=== PATIENT | female | born 1930 | race Caucasian/White ===

== ENCOUNTER → 2016-06-06 | Outpatient (CLI) | payer OTHER ==
[~2016-06-06] MED LIST: AMLO10CA PO; ASCAUNK PO; ASPEC81 PO; CHOLTAB3 PO; CLTP PO; FIBER PO; GLCS500 PO; HYDC25 PO; OMEG10007 PO; STLS PO; THERA-TEARS; THIA100T11 PO; VITA400C15 PO; VITATAB19 PO
--- NOTE | 2016-06-06 15:46 | MAMMOGRAPHY REPORT ---
UNILATERAL RIGHT DIGITAL DIAGNOSTIC MAMMOGRAM TOMOSYNTHESIS AND TARGETED RIGHT ULTRASOUND: 06/06/2016 CLINICAL HISTORY: 85-year-old woman called back from screening mammography for a newly visualized 4. 7 mm mass and associated microcalcifications in the lower outer middle one third of the right breast . TECHNIQUE: Spot compression CC and MLO 2-D digital and tomosynthesis images; spot magnification CC a nd ML views of the right breast were obtained. COMPARISON: Comparison is made to exams dated: 05/04/2016 mammogram, 01/12/2015 mammogram, 11/19/2012 mammogram, 11/19/2011 mammogram, 11/20/2010 mammogram, and 08/08/2009 mammogram - [facility]. BREAST COMPOSITION: There are scattered areas of fibroglandular density in the right breast. FINDINGS: There are moderate vascular calcifications and numerous rodlike secretory calcifications and benign coarse calcifications within the right breast. However, there is a cluster of pleomorphi c microcalcifications adjacent to and within a rounded dense mass in the lower outer middle one thir d of the right breast. The mass appears partially circumscribed on the tomosynthesis images, but th e extent of the calcifications measure 11 x 11 x 7 mm in maximum dimension. Further evaluation with ultrasound was performed. Real-time high-resolution ultrasound was performed in the inferior right breast. In the 7:00 axis, approximately 27 m from the nipple, there is a rounded hypoechoic solid-appearing mass with internal punctate echogenic reflectors. The mass measures 4.0 x 3.2 x 5.6 mm. Inferior to the rounded mass there is a fusiform anechoic area of probable duct ectasia and just inferior to this and abutting t he rounded mass there is another angular hypoechoic lesion with internal reflectors likely represent ing the second area of pleomorphic microcalcification. This measures approximately 6 mm in dimensio n. These findings correlate well with the configuration of the mammographic abnormality and further evaluation with tissue sampling is recommended. Additional sonographic evaluation performed in the right axilla demonstrates 2 morphologically normal lymph nodes, without evidence of suspicious arturo opathy. IMPRESSION: ACR BI-RADS CATEGORY 4C: MODERATE SUSPICION FOR MALIGNANCY, TARGETED ULTRASOUND ACR BI- RADS CATEGORY 4C: MODERATE SUSPICION FOR MALIGNANCY 1. Ultrasound guided core biopsy with specimen radiography is recommended for a 4 mm rounded mass a nd adjacent angular hypoechoic mass, both of which have associated microcalcification identified in the 7:00 right breast on ultrasound, but thought to correlate with the mammographic findings in the lower outer middle one third of the breast. The mammographic findings including both the mass and e xtent of calcifications measures 11 x 11 x 7 mm in maximum dimension. These results and recommendations were discussed with the patient at the time of the exam. She tenta tively scheduled a biopsy prior to leaving our department. Approximately 10% of breast cancers are not detected with mammography. A negative mammographic repor t should not delay biopsy if a clinically suggestive mass is present. Pilar Narayanan M.D. ay/:06/06/2016 13:21:24 Rubber Press Operator: Priscila MANDEL(Aicha)(Emy), [facility] letter sent: Abnormal 4/5 BI-RADS Code: ACR BI-RADS Category 4C: Moderate Suspicion For Malignancy Ultrasound BI-RADS: ACR BI -RADS Category 4C: Moderate Suspicion For Malignancy
== END | disposition home or self-care (01) ==
LOC: C.MAMM 12:35
PROVIDERS: ATTEND Internal Medicine Endocrinology, Diabetes & Metabolism
DX: N63 Unspecified lump in breast (principal); R92.0 Mammographic microcalcification found on diagnostic imaging of breast

== ENCOUNTER → 2016-06-13 | Outpatient (CLI) | payer OTHER ==
--- NOTE | 2016-06-13 11:55 | Discharge Instructions ---
Discharge Instructions Procedure Procedure Date: Jun 13, 2016. Reason for visit: Right Mass. Discharge Discharge Date: Jun 13, 2016. Discharge Diagnosis: post right breast ultrasound guided core biopsy Instructions Activity Recommendations: Additional Limitations (see below) Return to School/Work: no limitations Recommended Home Diet: No Limitations Provider Instructions: ACTIVITY RECOMMENDATIONS: * No lifting, pushing, pulling or exercising the affected side for three days. RETURN TO SCHOOL/WORK: * You may return to work/school after the procedure, but do not perform any strenuous activities for 24 to 48 hours. MEDICATIONS: * Tylenol (two 325 mg) every four to six hours if needed for mild pain (if not allergic to Tylenol). DIET: * Resume previous diet. SPECIAL CARE INSTRUCTIONS: * Keep biopsy site dry for 24 hours. May shower after 24 hours, but do not soak (bathe) incision. * May remove Tegaderm (plastic patch) tomorrow AFTER showering. * Leave the steri-strips on for one week. Allow the steri-strips to fall off by themselves. If not off after one week, you may remove them. You may place a Bandaid crosswise over the strips, if desired. * Apply ice 10 minutes on and 10 minutes off as needed. * Wear a bra at bedtime to sleep more comfortably for 2-3 days. * Your referring physician should have the results after approximately 5 to 7 business days. * Call for unusual bleeding, fever, drainage, etc or if you have any questions call [phone] during normal business hours or after hours call Dr Narayanan, . FOLLOW UP VISIT: Follow-up with Referring Physician as scheduled. Allergies Coded Allergies: No Known Allergies (Unverified , 02/23/10) Jahaira Hernandez Recommendations: Call your doctor if: * Temperature above 101 degrees * Pain not relieved by pain medicine ordered * There is increased drainage or redness from any incision * You have any unanswered questions or concerns. Your Doctors Instructions noted above were prepared by provider Pilar Narayanan. Patient Signature Section: Patient Instructions Signature Page Katy Bang Patient (or Guardian) Signature/Date: I have read and understand the instructions given to me by my caregivers. Caregiver/RN/Doctor Signature/Date: The above-named patient and/or guardian has received patient instructions on this date. + Original Patient Signature Page (only) stays with chart. Please make copy for patient.
--- NOTE | 2016-06-13 13:58 | MAMMOGRAPHY REPORT ---
ULTRASOUND GUIDED BIOPSY RIGHT BREAST: 06/13/2016 CLINICAL HISTORY: 85-year-old woman presents for ultrasound-guided core biopsy of 2 adjacent versus contiguous hypoechoic solid masses with associated calcification in the 7:00 middle one third of the right breast. COMPARISON: Comparison is made to exams dated: 06/06/2016 ultrasound, 05/04/2016 mammogram, 11/19/2012 mammogram, 11/19/2011 mammogram, 08/09/2010 mammogram, and 08/08/2009 mammogram - [facility]. PATIENT CONSENT: The procedure, risks and benefits were discussed with the patient and informed writ ten consent was obtained. Specific risks to this procedure include: bleeding, infection, puncture of adjacent structure, nontarget biopsy, sampling error and medication reaction. PROCEDURE DESCRIPTION: A time out was performed and the right breast was agreed as the site of biops y. The skin was prepped and draped in the usual sterile fashion. The solid rounded and curvilinear s olid mass/masses with associated calcification in the 7:00 right breast was chosen as the target for biopsy. Subcutaneous and intraparenchymal 1% buffered lidocaine was administered as local anesthesi a. A skin incision was made. Through the incision, 5 samples were taken with a 12 gauge Code Rebel biop sy device. A specimen radiograph was performed after the first 4 samples were obtained, and numerou s microcalcifications are identified within one sample and a few microcalcifications are identified within a second sample, confirming that the hypoechoic masses on ultrasound do indeed contain the ma mmographically identified calcification. After confirmation of calcifications within the samples, a metallic marker was placed at the biopsy site. Hemostasis was achieved after manual compression. Th e patient tolerated the procedure well and there was no immediate complication. The samples were se nt to the pathology department an appropriately labeled container. Postprocedure right CC and ML tomosynthesis images were obtained. There is a new ribbon-shaped meta llic biopsy marker and no significant hematoma at the site of the mass with associated microcalcific ations. Pathology results are pending. IMPRESSION: ULTRASOUND GUIDED BIOPSY Status post ultrasound guided core needle biopsy of a contiguous mass versus 2 abutting masses with associated amorphic microcalcification in the 7:00 right breast, with biopsy marker placed at the si te. The patient will receive notification of the biopsy results from her referring physician. Pilar Narayanan M.D. ay/:06/13/2016 12:14:01 Clinical Nurse: Vicky SCHOFIELD (R)), [facility]
--- NOTE | 2016-06-13 13:58 | MAMMOGRAPHY REPORT ---
SPECIMEN: 06/13/2016 CLINICAL HISTORY: Specimen x-ray to insure microcalcifications are included in biopsy samples. Please refer to the report from right breast ultrasound guided core biopsy performed at the same [facility] e for full detail. IMPRESSION: SPECIMEN Please refer to the report from right breast ultrasound guided core biopsy performed at the same [facility] for full detail. Pilar Narayanan M.D. ay/:06/13/2016 11:56:10 Fibre Composite Technician: Vicky MANDEL(Aicha)(M), [facility]
--- NOTE | 2016-06-13 13:59 | MAMMOGRAPHY REPORT ---
UNILATERAL RIGHT DIGITAL DIAGNOSTIC MAMMOGRAM TOMOSYNTHESIS: 06/13/2016 CLINICAL HISTORY: Status post ultrasound-guided core biopsy of 2 hypoechoic masses with associated c alcifications in the 7:00 right breast. Please refer to the report from right breast ultrasound guided core biopsy [facility] for full detail. IMPRESSION: POST PROCEDURE IMAGING FOR MARKER PLACEMENT Please refer to the report from right breast ultrasound guided core biopsy [facility] for full detail. Approximately 10% of breast cancers are not detected with mammography. A negative mammographic repor t should not delay biopsy if a clinically suggestive mass is present. Pilar Narayanan M.D. ay/:06/13/2016 11:57:13 Proposal Coordinator: Vicky MANDEL(Aicha)(M), [facility] BI-RADS Code: Post Procedure Imaging For Marker Placement
== END | disposition home or self-care (01) ==
LOC: C.MAMM 09:59
PROVIDERS: ATTEND Internal Medicine Endocrinology, Diabetes & Metabolism
DX: D05.11 Intraductal carcinoma in situ of right breast (principal)

== ENCOUNTER → 2017-01-09 | Outpatient (CLI) | payer OTHER ==
[2017-01-09 18:08] LABS: CHOLESTEROL/HDL RATIO 3.1; THYROID STIMULATING HORMONE 0.924 uIu/ml (0.300-4.500)
== END | disposition home or self-care (01) ==
LOC: C.LABPBG 12:07
PROVIDERS: ATTEND Neuromusculoskeletal Medicine & OMM
DX: Z00.00 Encounter for general adult medical examination without abnormal findings (principal)

== ENCOUNTER → 2017-03-03 | Outpatient (CLI) | payer OTHER ==
--- NOTE | 2017-03-04 08:21 | PAP/PSG TECHNICIAN REPORT ---
[facility] Camp Assistant Polysomnogram Report Study name: None Report date: 03/04/2017 Study date: 03/03/2017 Referring Physician: DR.PHILIPP MOLINA D.O. Name: VERA BANG Interpreting Physician: Gigi Gracia M.D. Date of : 1930 Camp Assistant: Karen Gonzales, PSGT. Sex: Female Age: 86 StudyType: PSG Weight: 175 lbs Height: 86 years, Height 5' 2" BMI: 32 Medications: Amlodipine 10-20 mg, Ditropan XL 15 mg, fish Oil, Garlic, Glucosamine, HCTZ 25 mg, Oxybutynin 15 mg, Tamsulosin 0.4 mg, Vit-B, Vit-C, Vit-D. Patient History 86 yr. old female presents to the sleep lab for a diagnostic split night study >5. She has used c-pap in the past but was unable to tolerate the pressure. Parameters Monitored NPSG: E1-M2, E2-M1, Fp1-M2, Fp2-M1, F3-M2, F4-M2, F4-M1, C3-M2, C4-M2, C4-M1, O1-M2, O2-M2, O2-M1, T3-M2, T4-M1, P3-M2, P4-M1, CHIN1, CHIN2, HR, EKG, Legs, PFLOW, SNOR, FLOW, CFLOW, Tidal Volume, THOR, ABDO, SpO2, PLTH, CPRESS, ETCO2 Wave, ETCO2, pH Sleep Architecture Sleep Stages Time at Lights Off 11:18:10 PM STAGES Time (min.) TST (%) Time at Lights On 5:31:10 AM Wake 237.0 -- Total Recording Time (TRT) 373.00 min. N1 24.0 18 Total Sleep Period (TSP) 341.0 min. N2 69.5 51 Total Sleep Time (TST) 136.0min. N3 0.0 0 Awake Time 237.0 min. REM 42.5 31 Wake after Sleep Onset 205.0 min. Sleep Efficiency (SE) 36 % Sleep Onset Latency (ARNULFO) 32.0 min. Number of Stage 1 Shifts None Awakenings 4 Stage Changes 17 Number of REM periods 2 REM 42.5 31 REM Latency 102.5 min. NREM 93.5 69 Body Position Analysis Supine Right Left Side Prone Vertical Total Sleep Time (min.) 0.0 113.5 22.5 136.00 0.0 0.3 Total Sleep Time (%) 0% 83% 17% 100 0% N/A% Total Sleep Time REM (min.) 0.0 42.5 0.0 None 0.0 0.0 Total Sleep Time NREM (min.) 0.0 71.0 22.5 None 0.0 0.0 Intermittent Wake (min.) 0.0 16.2 220.5 None 0.0 0.3 Total Sleep Period (%) 0% None None None None None Arousals Myoclonus (PLM) * Events Count Index Events Count Index Spontaneous 35 15 Events Awake (PLMW) 2 0.5 Respiratory 0 0.0 Events Asleep w/ Arousal (PLMA) 0 0.0 PLM 0 0 Events Asleep w/o Arousal (PLMS) 12 5.3 Snoring 8 4 Total Asleep 12 5.3 Total 43 19 Total 14 2 Respiratory Analysis * CA OA MA CH H RERA Total Count 0 0 0 0 16 0 16 Index 0.0 0.0 0.0 0 7.1 0 7.1 Mean Duration 0.0 0.0 0.0 0.00 24.2 0.0 24.2 Longest Duration 0.0 0.0 0.0 0.00 0.0 0.0 56.4 Respiratory Event Summary Total Supine ~Supine Right Left Prone REM NREM Apneas Count 0 N/A 0 0 0 N/A 0 0 Index 0.0 N/A 0 0.0 0.0 N/A 0 0 Hypopneas (4% Desat) Count 16 N/A 16 15 1 N/A 8 8 Index 7.1 N/A 7 7.9 2.7 N/A 11.3 5.1 Apneas & All Hypopneas Count 16 N/A 16 15 1 N/A 8 8 Index 7.1 N/A 7 8 3 N/A 11.3 5.1 Respiratory Events (Riverboat Captain+All Hyp+RERA) Count 16 N/A 16 15 1 N/A 8 8 Index 7.1 N/A 7 7.9 2.7 N/A 11.3 5.1 Respiratory Related Arousal Count 0 N/A 0 0 0 N/A 0 0 Index 0.0 N/A 0 0 0 N/A 0 0 Snoring Analysis Supine Right Left Prone REM NREM Total Snore duration 9.7 min Snores count N/A 353 58 N/A 173 238 411 Snore mean duration 1.4 Sec Snores index N/A 187 155 N/A 244.2 152.7 181.3 TST with snoring (%) 7.1% Desaturation Event Summary: Minimum %SpO2 Event Count Mean/Min/Max Duration(sec.) Desaturation Index % Time In Bed > 90 13 41.1 / 16.5 / 51.8 2.2 98.9 86 - 90 0 N/A 0.0 1.0 81 - 85 0 N/A 0.0 0.2 76 - 80 0 N/A 0.0 0.0 71 - 75 0 N/A 0.0 0.0 66 - 70 0 N/A 0.0 0.0 61 - 65 0 N/A 0.0 0.0 56 - 60 0 N/A 0.0 0.0 51 - 55 0 N/A 0.0 0.0 < 50 0 N/A 0.0 0.0 Total REM NREM Awake <50% 0.0 min. 0.0 min. 0.0 min. 0.0 min. 51 - 60% 0.0 min. 0.0 min. 0.0 min. 0.0 min. 61 - 70% 0.0 min. 0.0 min. 0.0 min. 0.0 min. 71 - 80% 0.0 min. 0.0 min. 0.0 min. 0.0 min. 81 - 90% 4.1 min. 0.9 min. 2.2 min. 1.0 min. 91 - 100% 356.0 min. 41.6 min. 91.2 min. 223.2 min. Average 94 94 93 94 Minimum SpO2 81 89 82 81 Desaturation Event Index 2.1 9.9 3.9 0.0 # Desat. Events below 89% 2 N/A 2 N/A Time(%) with Saturation below 89% 0.3 0.0 0.3 0.1 Time(min.) with Saturation below 89% 1.2 0.0 1.0 0.2 Time (mins) REM (mins) NREM (mins) % of TST SpO2 Below 90% 7 3 N4 1.0 SpO2 Below 88% 2 0 0 0 Heart Rate Analysis Min (bpm) Max (bpm) Average (bpm) Awake 55 127 61 NREM 56 75 62 REM 57 71 62 Overall 56 75 62 Supplemental O2 Values Minimum O2 level: None Value Start Time End Time Camp Assistant Comments PSG Study slept in the right, and left, positions. No cardiac arrhythmia or PLM's noted. No bruxism noted. Snoring was noted and scored as a 2 on a scale of 1 through 5. (0=no snoring, 5=snoring loud enough to be heard through a closed door or down the [address]) Ms. Bang awoke to use the restroom 2 times during the night. Ms. Bang stated, I did not sleep as well as I do when I am in my own bed. The final report will be interpreted and signed by a sleep physician. The completed physician report will then be placed in the patient medical record. The patient did not meet the >5 AHI for the split night study, at 1:30 she hadn't slept enough or had enough respiratory events to do the split night study. Therapy (cm H2O) 0 TIB (min.) 373.0 TST (min.) 136.0 Sleep Onset (min.) 32.0 REM Onset From Sleep (min.) 102.5 Sleep Efficiency % 36 Wakefulness (%) 64 Wakefulness (min.) 237.0 NREM 1 (%) 18 NREM 1 (min.) 24.0 NREM 2 (%) 51 NREM 2 (min.) 69.5 NREM 3 (%) 0 NREM 3 (min.) 0.0 REM (%) 31 REM (min.) 42.5 # Arousals 43 Arousal Index 19 # Snore 411 Snore Index 181.3 AHI 7.1 AHI Supine N/A AHI Non-Supine 7 NREM AHI 5.1 REM AHI 11.3 RDI 7.1 # Obstructive Apnea 0 # Central Apnea 0 # Mixed Apnea 0 # Hypopneas 16 RERAs 0 Total Respiratory Events 16 Time Below SpO2 89% (min.) 1.0 Mean NREM SpO2 (%) 93 Mean REM SpO2 (%) 94 Mean Sleep SpO2 (%) 93 Min NREM SpO2 (%) 82 Min REM SpO2 (%) 89 Position Supine (min.) 0.0 Position Non-supine (min.) 136.0 LM Index Sleep 5.3 LM Index NREM 7.7 LM Index REM 0.0 Mean Heart Rate (bpm) 62 Min Heart Rate (bpm) 56
--- NOTE | 2017-03-05 11:27 | POLYSOMNOGRAPH REPORT ---
CLINICAL DATA: 86-year-old female with a BMI of [address] Long and myself for a sleep study. She has mild sleep apnea with daytime fatigue and hypersomnolence for many years. She is currently going through chemotherapy for breast cancer. She used auto CPAP in the past and had a difficult time using it because of intolerance of high pressures. She was sent for a possible split night sleep study, but did not reach criteria for a split night study with an AHI of > 5. SLEEP ARCHITECTURE: Total sleep period was 341 minutes. Total sleep time was only 136 minutes, divided between 93.5 minutes of non-REM sleep and 42.5 minutes of REM sleep. Sleep onset latency was 32 minutes. REM latency was 102.5 minutes. Sleep efficiency was 36% which is severely reduced. Wake after sleep onset was 205 minutes. Sleep consisted of stage N1 18%, N2 51%, and REM 31%. AROUSAL DATA: 43 arousals recorded for an index of 19 per hour. PLM DATA: 12 limb movements during sleep were noted for an index of 5.3 per hour with arousals index of 0. RESPIRATORY DATA: Very mild sleep apnea was documented. The AHI was 7.1. There were 16 hypopneic episodes with the mean duration of 24.2 seconds. OXIMETRY DATA: No significant hypoxemia was seen. Oxygen anthony was 82% during non-REM sleep. The mean saturation was 94%. Time below 88% was 2 minutes. EKG: Heart rates ranged from 56-75 beats per minute. No arrhythmias were noted. FACTORY ENGINEER'S COMMENTS: The patient slept in the right and left positions. Snoring was mild, rated 2 on a scale of 1 through 5. She awoke twice to use the restroom. She did not meet split night criteria even for an AHI greater than 5. IMPRESSION: Very mild sleep apnea/hypopnea with an AHI of 7.1 occurring primarily during REM sleep. The patient had limited sleep during this night. RECOMMENDATIONS: The patient will be seen back in the sleep clinic to discuss options for treatment. She has had difficulty with CPAP in the past but could be considered for a CPAP trial again. Clinical correlation is needed. [facility]ITAL[facility]
== END | disposition home or self-care (01) ==
LOC: C.NEUR 21:00
PROVIDERS: ATTEND Internal Medicine Pulmonary Disease
DX: G47.19 Other hypersomnia (principal); R53.83 Other fatigue; G47.33 Obstructive sleep apnea (adult) (pediatric)

== ENCOUNTER → 2017-04-17 | Outpatient (CLI) | payer OTHER ==
[2017-04-17 17:49] LABS: BLOOD UREA NITROGEN 16 mg/dl (7-18); BUN/CREATININE RATIO 30.5 (10-20); CALCIUM 9.6 mg/dl (8.5-10.1); CARBON DIOXIDE 31 mmol/L (21-32); CHLORIDE 97 mmol/L (98-107); CREATININE 0.53 mg/dl (0.60-1.20); GLUCOSE 90 mg/dl (70-99); POTASSIUM 3.7 mmol/L (3.5-5.1); SODIUM 135 mmol/L (136-145)
== END | disposition home or self-care (01) ==
LOC: C.LABPBG 13:35
PROVIDERS: ATTEND Internal Medicine Hematology & Oncology
DX: C50.511 Malignant neoplasm of lower-outer quadrant of right female breast (principal); R35.0 Frequency of micturition

== ENCOUNTER → 2017-05-08 | Outpatient (CLI) | payer OTHER ==
[2017-05-08 17:51] LABS: BLOOD UREA NITROGEN 13 mg/dl (7-18); BUN/CREATININE RATIO 31.5 (10-20); CALCIUM 9.5 mg/dl (8.5-10.1); CARBON DIOXIDE 30 mmol/L (21-32); CHLORIDE 89 mmol/L (98-107); GLUCOSE 96 mg/dl (70-99); POTASSIUM 3.5 mmol/L (3.5-5.1); SODIUM 125 mmol/L (136-145)
== END | disposition home or self-care (01) ==
LOC: C.LABPBG 13:24
PROVIDERS: ATTEND Internal Medicine Hematology & Oncology
DX: C50.511 Malignant neoplasm of lower-outer quadrant of right female breast (principal); R35.0 Frequency of micturition

== ENCOUNTER → 2017-07-24 | Outpatient (CLI) | payer OTHER ==
[2017-07-24 15:36] LABS: HEMATOCRIT 31.5 % (37-47); HEMOGLOBIN 10.8 g/dL (12.0-16.0); MEAN CELL VOLUME 86.1 fL (80-100); MEAN CORPUSCULAR HEMOGLOBIN 29.5 pg (25-34); MEAN CORPUSCULAR HGB CONC 34.3 g/dl (32-36); MEAN PLATELET VOLUME 8.1 fL (7.4-10.4); PLATELET COUNT 289 K/uL (130-400); RED CELL DISTRIBUTION WIDTH CV 14.5 % (11.5-14.5); RED CELL DISTRIBUTION WIDTH SD 45.1 fL (36.4-46.3); WHITE BLOOD COUNT 4.57 K/uL (4.8-10.8)
[2017-07-24 15:51] LABS: ALBUMIN 3.3 gm/dl (3.4-5.0); ALT/SGPT 17 U/L (12-78); AST/SGOT 12 U/L (15-37); BLOOD UREA NITROGEN 16 mg/dl (7-18); CALCIUM 9.2 mg/dl (8.5-10.1); CARBON DIOXIDE 28 mmol/L (21-32); CREATININE 0.55 mg/dl (0.60-1.20); GLUCOSE 93 mg/dl (70-99); POTASSIUM 3.9 mmol/L (3.5-5.1); SODIUM 132 mmol/L (136-145); URIC ACID 4.6 mg/dl (2.6-7.2)
[2017-07-24 15:54] LABS: ALKALINE PHOSPHATASE 71 U/L (45-117); PHOSPHORUS 2.9 mg/dl (2.5-4.9); TOTAL PROTEIN 6.3 gm/dl (6.4-8.2)
== END | disposition home or self-care (01) ==
LOC: C.LAB1850 14:04
PROVIDERS: ATTEND Internal Medicine Hematology & Oncology
DX: I10 Essential (primary) hypertension (principal); C50.511 Malignant neoplasm of lower-outer quadrant of right female breast; E87.1 Hypo-osmolality and hyponatremia

== ENCOUNTER → 2017-07-30 | Outpatient (CLI) | payer OTHER ==
[2017-07-30 17:50] LABS: HEMATOCRIT 32.8 % (37-47); HEMOGLOBIN 11.3 g/dL (12.0-16.0); MEAN CELL VOLUME 85.4 fL (80-100); MEAN CORPUSCULAR HEMOGLOBIN 29.4 pg (25-34); MEAN CORPUSCULAR HGB CONC 34.5 g/dl (32-36); MEAN PLATELET VOLUME 8.5 fL (7.4-10.4); PLATELET COUNT 264 K/uL (130-400); RED CELL DISTRIBUTION WIDTH CV 14.7 % (11.5-14.5); RED CELL DISTRIBUTION WIDTH SD 45.3 fL (36.4-46.3); WHITE BLOOD COUNT 5.39 K/uL (4.8-10.8)
[2017-07-30 18:30] LABS: ALBUMIN 3.5 gm/dl (3.4-5.0); ALT/SGPT 19 U/L (12-78); BLOOD UREA NITROGEN 12 mg/dl (7-18); CALCIUM 9.4 mg/dl (8.5-10.1); CARBON DIOXIDE 30 mmol/L (21-32); CREATININE 0.49 mg/dl (0.60-1.20); GLUCOSE 101 mg/dl (70-99); POTASSIUM 3.8 mmol/L (3.5-5.1); SODIUM 131 mmol/L (136-145); URIC ACID 3.7 mg/dl (2.6-7.2)
[2017-07-30 18:33] LABS: ALKALINE PHOSPHATASE 78 U/L (45-117); AST/SGOT 12 U/L (15-37); PHOSPHORUS 3.3 mg/dl (2.5-4.9); TOTAL PROTEIN 6.8 gm/dl (6.4-8.2)
== END | disposition home or self-care (01) ==
LOC: C.LABPBG 15:48
PROVIDERS: ATTEND Internal Medicine Nephrology
DX: I10 Essential (primary) hypertension (principal)

== ENCOUNTER → 2017-09-27 | Outpatient (CLI) | payer OTHER ==
[2017-09-27 14:31] LABS: BLOOD UREA NITROGEN 14 mg/dl (7-18); CALCIUM 9.5 mg/dl (8.5-10.1); CARBON DIOXIDE 29 mmol/L (21-32); CREATININE 0.52 mg/dl (0.60-1.20); GLUCOSE 73 mg/dl (70-99); POTASSIUM 3.7 mmol/L (3.5-5.1); SODIUM 136 mmol/L (136-145)
== END | disposition home or self-care (01) ==
LOC: C.LAB1850 11:43
PROVIDERS: ATTEND Internal Medicine Hematology & Oncology
DX: C50.511 Malignant neoplasm of lower-outer quadrant of right female breast (principal)